=== PATIENT | male | born 1985 | race Caucasian/White ===

== ENCOUNTER 2020-12-27 15:52 | Emergency (ER) | payer OTHER, SELFPAY ==
--- NOTE | ~2020-12-27 | XR_ITS ---
EXAMINATION: XR foot RT min 3V DATE: 12/27/2020 16:46 INDICATION: Right foot injury and pain. TECHNIQUE: 4 views of right foot were obtained. COMPARISON: None. FINDINGS: Bone alignment is normal. No fracture. There is mild osteoarthritis of first metatarsophala ngeal joint and talonavicular joint. IMPRESSION: 1. Mild polyarticular osteoarthritis. Reviewed, dictated and finalized at location A.
--- NOTE | ~2020-12-27 | XR_ITS ---
EXAMINATION: XR tibia fibula RT 2V DATE: 12/27/2020 16:46 INDICATION: Right lower leg injury and pain. TECHNIQUE: 2 views of right tibia and fibula were obtained. COMPARISON: None. FINDINGS: Bone alignment is normal. No fracture. Joint spaces are normal. No knee joint effusion. IMPRESSION: 1. No fracture. Reviewed, dictated and finalized at location A. IMPRESSION: 1. No fracture.
[2020-12-27 16:02] VITALS: BP 136/79; PULSE 95; RESP 18; TEMP 36.8; O2SAT 98
--- NOTE | 2020-12-27 16:08 | ED.EXTPRO ---
HPI - Extremity Problem General Chief complaint: Extremity Problem,Nontraumatic Stated complaint: Lower Rt Leg Pain Time Seen by Provider: 12/27/20 16:57 Source: patient and RN notes reviewed Mode of arrival: ambulatory Limitations: no limitations History of Present Illness HPI Narrative: 35-year-old male presents with concern for ankle and foot pain, swelling. Reports he slid down a ladder on Sunday injuring the leg and foot. Reports he has used ice, compression, elevation and has been using crutches since yesterday. He reports he has been using ibuprofen. He reports pain, swelling to the ankle and foot. Reports worsening pain with weightbearing. Reports abrasions on the front of the leg MD Complaint: extremity pain Related Data Home Medications Medication Instructions Recorded Confirmed No Home Medications 12/27/20 12/27/20 Allergies Allergy/AdvReac Type Severity Reaction Status Date / Time amoxicillin Allergy Mild Hives Verified 12/27/20 16:36 Penicillins Allergy Mild Hives Verified 12/27/20 16:35 Review of Systems Review of Systems: CONSTITUTIONAL: Denies malaise, chills, sweats, or fever. SKIN: Reports abrasions to the front of the right lower leg MUSCULOSKELETAL: Reports right lower leg pain, swelling NEUROLOGIC: Denies numbness, weakness All systems reviewed & are unremarkable except as noted in HPI and below PMFSH Comments At time of signature, agree with nursing past medical, surgical, social and family history. There is no relevant family history pertinent to the presenting complaint Exam Narrative: GENERAL: Well-appearing, well-nourished, and in no acute distress. HEAD: Normocephalic, atraumatic. EYES: PERRLA, conjunctivae clear NECK: Supple. CHEST: Speaks in full sentences. No respiratory distress. HEART: Regular rate and rhythm. Normal and equal peripheral pulses. EXTREMITIES: Right ankle, foot have normal strength and sensation, grossly normal range of motion. Moderate edema, mild erythema. 5/5 strength with ankle and digit flexion and extension. Normal sensation with sensitivity to light touch and pain. Generalized ankle tenderness. No skin tenting, no devitalized tissue or atrophy, no trophic changes, no obvious deformity, alignment normal, nearby joints and structures intact. Distal pulses palpable and equal bilaterally, skin warm, dry, pink. Capillary refill less than 3 seconds. SKIN: Warm, dry. Scabbed abrasions noted to the anterior right lower leg NEURO: Alert and oriented x3. PSYCH: Normal mood and affect Course Course Emergency Course: Patient is aware of diagnosis, understands and agrees to treatment plan. Anticipatory guidance given. Patient agrees to follow-up as directed and is aware of reasons to seek care at the emergency department. Portions of this record may have been created with voice recognition software Vital Signs Vital signs: Vital Signs Temperature 98.3 F 12/27/20 16:02 Pulse Rate 95 12/27/20 16:02 Respiratory Rate 18 12/27/20 16:02 Blood Pressure 136/79 12/27/20 16:02 Pulse Oximetry 98 12/27/20 16:02 Temperature 98.3 F 12/27/20 16:02 Pulse Rate 95 12/27/20 16:02 Respiratory Rate 18 12/27/20 16:02 Blood Pressure 136/79 12/27/20 16:02 Pulse Oximetry 98 12/27/20 16:02 Reviewed. MDM - Extremity (Nontraumatic) MDM Narrative Medical decision making narrative: Patients injury and pain is consistent with musculoskeletal etiology. No signs of neurological or vascular compromise on exam. Compartments and tissues are soft without signs of compartment syndrome. Pain is felt appropriate for further evaluation on an outpatient basis. Imaging Data Radiologist's impression: EXAMINATION: XR tibia fibula RT 2V DATE: 12/27/2020 16:46 INDICATION: Right lower leg injury and pain. TECHNIQUE: 2 views of right tibia and fibula were obta
== END 2020-12-27 17:12 | disposition home or self-care (01) ==
PROVIDERS: Emergency Provider Nurse Practitioner
DX: S93.401A Sprain of unspecified ligament of right ankle, initial encounter (principal); W11.XXXA Fall on and from ladder, initial encounter
CPT/HCPCS: 73590; 73630; 99214; G0463

== ENCOUNTER 2023-10-23 10:37 | Emergency (ER) | payer OTHER, SELFPAY ==
--- NOTE | 2023-10-23 10:43 | ED.EYEPROB ---
HPI - Eye Problem General Chief complaint: Eye Problems Stated complaint: lt eye inection Time Seen by Provider: 10/23/23 11:00 Source: patient Mode of arrival: ambulatory Limitations: no limitations History of Present Illness HPI Narrative: Tre was a 38-year-old male patient presenting to the clinic today with complaints of left eye draining, redness, and itching. He reports this started on Sunday. Was given prescription for E-Mycin ointment but does not feel as though it is helping and he is also stating that it is gunking up his eye and he does not like that. Related Data Home Medications Medication Instructions Recorded Confirmed atorvastatin 80 mg tablet 80 mg PO DAILY 10/23/23 10/23/23 erythromycin 5 mg/gram (0.5 %) eye 1 applic LEFT EYE BID 10/23/23 10/23/23 ointment fenofibrate 160 mg tablet 160 mg PO DAILY 10/23/23 10/23/23 sertraline 100 mg tablet 100 mg PO DAILY 10/23/23 10/23/23 trazodone 50 mg tablet 50 mg PO HS 10/23/23 10/23/23 Allergies Allergy/AdvReac Type Severity Reaction Status Date / Time amoxicillin AdvReac Mild Hives Verified 10/23/23 10:52 Penicillins AdvReac Mild Hives Verified 10/23/23 10:52 Review of Systems Review of Systems: Pertinent positives per HPI. Patient denies any fever, chills, rash, headache, visual changes, dizziness, cough, runny nose, sore throat, shortness of breath, chest pain, palpitations, nausea, vomiting, diarrhea, constipation, abdominal pain, or any urinary issues. HIEN Comments At the time of my signature, I reviewed and agree with the nursing past medical, surgical, social, and family history. There is no relevant family history pertinent to the patient complaint. Exam Narrative: General: Well-developed, well nourished, in no apparent distress Head: Normocephalic, atraumatic Eyes: Pupils equally round and reactive to light bilaterally, EOM intact, right sclera and conjunctive clear, no discharge, lids normal, left sclera and conjunctiva injected Ears: TMs intact and clear, ear canals clear, no drainage, grossly hearing normal. Nose: Nares patent, no discharge, no inflammation, no sinus tenderness. Mouth: Oropharynx without lesions or masses, good dentition, MMM. Neck: Supple, trachea midline, no enlargement of anterior or posterior cervical nodes, no thyroid masses or goiter palpable. Cardio: Regular rate and rhythm, s1 and s2 normal, no murmur appreciated. Resp: Clear to auscultation bilaterally anteriorly and posteriorly, no rhonchi, rales, wheezing or rubs Course Course Emergency Course: Portions of this record may have been created with voice recognition software. Level of Care: Express Care Visit Vital Signs Vital signs: Vital Signs Temperature 36.7 C 10/23/23 10:50 Pulse Rate 72 10/23/23 10:50 Respiratory Rate 18 10/23/23 10:50 Blood Pressure 119/68 10/23/23 10:50 Pulse Oximetry 96 10/23/23 10:50 Oxygen Delivery Room Air 10/23/23 10:50 Temperature 36.7 C 10/23/23 10:50 Pulse Rate 72 10/23/23 10:50 Respiratory Rate 18 10/23/23 10:50 Blood Pressure 119/68 10/23/23 10:50 Pulse Oximetry 96 10/23/23 10:50 Oxygen Delivery Room Air 10/23/23 10:50 Vital signs reviewed MDM - Eye Problem MDM Narrative Medical decision making narrative: At the time of visit patient is resting comfortably on the exam table. Patient appears to be nontoxic. Plan: I suspect patient has conjunctivitis. He is requesting different prescription-eyedrops. Supportive measures were discussed with the patient and they voiced understanding discharge instructions and agrees to treatment plan. Return precautions reviewed Differential Diagnosis Differential diagnosis: Likely corneal abrasion, conjunctivitis, acute iritis, hyphema, periorbital cellulitis, subconjunctival hemorrhage, glaucoma and ruptured globe Discharge Plan Discharge Clinical Impression: Conjunctivitis Patient Disposition: Home, Self-Ca
[2023-10-23 10:50] VITALS: BP 119/68; PULSE 72; RESP 18; TEMP 36.7; O2SAT 96
== END 2023-10-23 11:10 | disposition home or self-care (01) ==
PROVIDERS: Emergency Provider Nurse Practitioner Family; PCP Family Medicine
DX: H10.9 Unspecified conjunctivitis (principal); E78.00 Pure hypercholesterolemia, unspecified; F41.9 Anxiety disorder, unspecified
CPT/HCPCS: 99213; G0463